=== PATIENT | male | born 1940 | race Caucasian/White ===

== ENCOUNTER 2016-09-11 13:39 | Inpatient (IN) | payer BC ==
--- NOTE | ~2016-09-11 | HP ---
History And Physical [place] [id number] [place]. [address] NAME: ISSAC POZO : 42 STATUS : ADM IN [facility]#: [id number] AGE: 76 ADM/REG DATE : 09/11/16 MR#: [id number] REPORT SERV DATE: 09/11/16 DICTATED BY: TALHA CARDENAS DATE: 09/11/16 REPORT STATUS : Draft TRANSCRIBED BY: ZACHARY DATE: 09/11/16 DATE OF ADMISSION: 09/11/2016 CHIEF COMPLAINT: Severe debility with low blood count. HISTORY OF PRESENT ILLNESS: A 76 years old male with a past medical history of coronary artery disease, status post CABG x9, also a history of recurrent pneumonias and iron deficiency anemia being followed by Dr. Chris Grove, primary care physician, found to have a low blood count that continued to drop to around 8.7. The patient was being followed by his GI physician, Dr. Pedrito Vaughan as an outpatient. The patient states he is up to date for his colonoscopy and had a colonoscopy this year, he believes this month, 09/2016, and the patient was referred to the hospital for worsening anemia with pancytopenia. The patient states he has had approximately 48-pound weight loss over the past two months. He states he has had occasional night sweats. No subjective fever or chills. The patient states he had CT of the chest, abdomen, and pelvis at [facility], several months ago. He states that over the past three to four months, he has had progressive generalized weakness to the point where it is hard for him to get up as well as hard to ambulate, and according to the patient, hard for him to walk due to severe weakness, which is generalized and nonfocal. He denies any shortness of breath. No chest pain. He does state he dealt with gaseous abdominal distention, treating it with simethicone. Also, has chronic severe loose stools. The patient was seen in the ER by Dr. Tejeda, who called the Hospitalist to admit the patient to the hospital. The patient had a negative stool Hemoccult in the ER. REVIEW OF SYSTEMS: As mentioned above as well as intermittent dysuria. Normal appetite. Intermittent night sweats. No subjective fever or chills. No shortness of breath. No chest pain. Generalized weakness. Severe debility. PAST MEDICAL HISTORY: History of reported hepatitis, iron deficiency anemia, diverticulosis, peptic ulcer disease, coronary artery disease/CABG x5. PAST SURGICAL HISTORY: Hernia repair, CABG. FAMILY HISTORY: ESRD, brother. The patient is unsure of other family history. SOCIAL HISTORY: History of 16 to 17 pack years, but quit many years ago. No alcohol or illicit drugs. 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 ALLERGIES: PENICILLIN. HOME MEDICATIONS: Please review home medications per pharmacy MAR; however, the patient does report Prilosec, Protonix, ranitidine simethicone, and aspirin. PHYSICAL EXAMINATION: VITAL SIGNS: Temp of 97.8, blood pressure 113/54, pulse of 74, respiration of 16, saturating 97% on room air. History And Physical [address] [address] NAME: ISSAC POZO : 42 STATUS : ADM IN [facility]#: [id number] AGE: 76 ADM/REG DATE : 09/11/16 MR#: [id number] REPORT SERV DATE: 09/11/16 DICTATED BY: TALHA CARDENAS DATE: 09/11/16 REPORT STATUS : Draft TRANSCRIBED BY: ZACHARY DATE: 09/11/16 GENERAL: The patient is alert and oriented x3. HEENT: Pupils equal, round, and reactive to light. Extraocular muscles are intact. Anicteric sclerae. Pale conjunctiva. No appreciated conjunctival petechiae. No dentition. CARDIOVASCULAR: S1, S2. Regular rate and rhythm. No murmurs, rubs, or gallops. No JVD. RESPIRATORY: Clear to auscultation bilaterally. No wheezes or crackles. No tachypnea. ABDOMEN: Positive bowel sounds. Soft with some mild generalized tenderness to palpation. No rebound. No distention. Mild obesity. EXTREMITIES: Warm with a trace of edema bilaterally. NEURO: Cranial nerves 2 through 12 grossly intact with 4/5 upper and lower extremity strength bilaterally. Gait not assessed. LABORATORY DATA: Sodium 143, potassium 3.9, chloride 108, bicarb of 26, BUN of 16, creatinine 1.42 with glucose of 82, T bilirubin of 1.3 with alkaline phosphatase 57, ALT of 20, AST of 14. White count of 4.1, hemoglobin of 8.7, platelet count 125, MCV of 123.4 with RDW of 15.2, neutrophils 71.4. INR of 1.2. ASSESSMENT AND PLAN: 1. Pancytopenia with symptomatic anemia. 2. Debility. 3. History of coronary artery disease/coronary artery bypass graft. We will check iron studies as well as vitamin studies and we will check SPEP and consult Hematology for assistance for pancytopenia workup. Suspect the patient's debility secondary to his anemia; however, also we will check CT of the chest, abdomen, and pelvis for malignancy screening. Also, we will send for medical records from primary care as well as Dr. Pedrito Vaughan, his GI physician, for last colonoscopy report. JOSLYN/ZACHARY Talha Cardenas M.D. / [id number] CC: Khushi Cramer
--- NOTE | ~2016-09-11 | CN ---
Consultation Report [facility] [address] [place]. [address] NAME: ISSAC STORM : 42 STATUS : ADM [facility] PAT#: [id number] AGE: 76 ADM/REG DATE : 09/11/16 MR#: [id number] REPORT SERV DATE: 09/13/16 DICTATED BY: BRENTON MENJIVAR DATE: 09/12/16 REPORT STATUS : Draft TRANSCRIBED BY: MODL DATE: 09/12/16 CONSULTATION DATE OF CONSULTATION: REASON FOR CONSULTATION: Pancytopenia. I came by and saw the patient and ordered a bone marrow biopsy, returned tonight to complete my consultation. HISTORY OF PRESENT ILLNESS: Briefly, Mr. Storm is a very pleasant 76-year-old with multiple medical problems including a history of an infectious hepatitis many years ago, and he states since that time, he has had intermittent bouts of bile-like diarrhea. He has a history of iron-deficiency anemia, diverticulosis, peptic ulcer disease, coronary artery disease with a CABG x5. He came to the [facility] Emergency room complaining of increased fatigue and feeling weak. He says over the past three to four months he has had progressive generalized weakness to the point he has a hard time ambulating. He has chronic intermittent diarrhea which he states he is able to control some with diet. He has had two recurrent pneumonias and has a history of iron deficiency. He was started on iron after his hemoglobin dropped to 8.7. He has also been followed by Dr. Pedrito Vaughan for GI and states he has had a colonoscopy within the last year. PAST MEDICAL HISTORY: Listed above. REVIEW OF SYSTEMS: A 14-point review of systems was performed and negative except for as per HPI. SOCIAL HISTORY: He served in [employer] and may have had exposure to [employer] [place]. He has had heavy alcohol use in the past and nothing recently. He is currently , the second , he has been for three years. FAMILY HISTORY: Noncontributory. His blood work reveals a white count of 2.8, hemoglobin 7.6, platelet count of 110 with an MCV of 120. Creatinine is 1.33. Non-contrasted CT scans were ordered by the hospitalist which revealed enlarged spleen of approximately 17 cm. A liver with some cyst in it and a mildly enlarged prostate. The patient tells he is unsure if he has ever had his PSA checked. ASSESSMENT AND PLAN: Pancytopenia. He has multiple possibilities. He could have some liver splenic dysfunction causing this. This could be related to myelodysplastic syndrome or an underlying leukemia, lymphoma. I ordered a bone marrow biopsy earlier today. It has not yet been done, so we will reorder this to look for myelodysplastic syndrome versus acute myeloid leukemia. Given his chronic GI issues, this could be secondary to vitamin deficiency. We will check copper and zinc levels. His B12 and folic acid levels were normal. We will follow with you. Consultation Report [place] [id number] [place]. [address] NAME: ISSAC STORM : 42 STATUS : ADM [facility] PAT#: [id number] AGE: 76 ADM/REG DATE : 09/11/16 MR#: [id number] REPORT SERV DATE: 09/13/16 DICTATED BY: BRENTON MENJIVAR DATE: 09/12/16 REPORT STATUS : Draft TRANSCRIBED BY: ZACHARY DATE: 09/12/16 Thank you very much for the consultation. SHRADDHAD/ZACHARY Brenton Menjivar M.D. / [id number] CC: Khushi Cramer
--- NOTE | ~2016-09-11 | DS ---
Discharge Summary [place] [id number] [place]. [address] NAME: ISSAC POZO : 42 STATUS : DIS IN PAT#: [id number] AGE: 76 ADM/REG DATE : 09/11/16 MR#: [id number] REPORT SERV DATE: 09/19/16 DICTATED BY: TALHA CARDENAS DATE: 09/15/16 REPORT STATUS : Draft TRANSCRIBED BY: ZACHARY DATE: 09/15/16 ADMISSION DATE: 09/11/2016 DISCHARGE DATE: 09/15/2016 DIAGNOSES: 1. Pancytopenia. 2. Symptomatic anemia, resolved. 3. Splenomegaly. 4. Copper deficiency. 5. Debility. 6. Chronic kidney disease. 7. Chronic diarrhea. 8. History of coronary artery disease, status post coronary artery bypass grafting. FOLLOWUP: 1. The patient is to follow up with Dr. Kelsea Menjivar, Hematology/Oncology in one week for lab work and path report results from bone marrow biopsy. 2. Follow up with primary care physician in one to two weeks. 3. The patient has been informed to move slowly when changing positions. PROCEDURES: Bone marrow biopsy. DISCHARGE MEDICATIONS: 1. Aspirin 81 mg p.o. daily. 2. Protonix 40 mg p.o. daily. 3. Florastor one capsule p.o. b.i.d. 4. Copper gluconate 2 mg p.o. daily. 5. Multivitamin p.o. daily. 6. Simethicone p.r.n. 7. Albuterol MDI two puffs inhaled q.6 hours p.r.n. IMAGING: CT of the chest, abdomen, and pelvis without contrast showing interval development of a small right and trace left pleural effusion. The previously demonstrated posterior right lower lobe nodules along the pleural margin may be obscured by atelectasis. The third right lower lobe nodule is stable. There is increased splenomegaly, maximum splenic length of 17.7 cm, previously measured at 15.1 cm; a benign liver cyst, unchanged; gallbladder has a normal CT appearance and there is no biliary dilatation. There is a stable 3 cm infrarenal abdominal aortic aneurysm. There is some prostate enlargement and a distal colonic diverticulosis. Otherwise, negative CT of the pelvis. CONSULTANTS: 1. Hematology/Oncology with Dr. Kelsea Menjivar. 2. Dr. Omero Menjivar. 3. Dr. Eduardo. HOSPITAL COURSE: A 76 years old male with a past medical history of coronary artery disease Discharge Summary [address] [address] NAME: ISSAC POZO : 42 STATUS : DIS IN PAT#: [id number] AGE: 76 ADM/REG DATE : 09/11/16 MR#: [id number] REPORT SERV DATE: 09/19/16 DICTATED BY: TALHA CARDENAS DATE: 09/15/16 REPORT STATUS : Draft TRANSCRIBED BY: ZACHARY DATE: 09/15/16 and a history of recurrent pneumonia, who presented with a severe debility with a low blood count. The patient was referred to the emergency department by his GI physician, Dr. Pedrito Vaughan after being found to have a worsening anemia with a hemoglobin close to 8.5. The patient recently had a colonoscopy by his GI physician; however, the patient states he has had progressive generalized weakness over the past 4 months and also has dealt with chronic diarrhea for several months to years. The patient was seen in [facility] ER and admitted to the Hospitalist Service. With review of the patient's home medications, apparently the patient has been taking some anti-acid medication incorrectly and taking Prilosec and Protonix and Zantac. The patient was informed to only take 1 PPI, which also can cause worsening loose stools/diarrhea with malabsorption with overmedication of his PPI. The patient's Prilosec was discontinued and continued on Protonix. Also, the patient was seen by Hematology/Oncology for his pancytopenia with an initial white cell count of 4.1, hemoglobin of 8.7, platelet count of 125. The patient remained afebrile. No signs of infection throughout his hospital course. He had a nondiagnostic SPEP. His B12 and folate were within normal limits. Also, iron studies with elevated iron saturation of 93% and a serum iron of 178 and with IV hydration during his hospital course for some mild hypovolemia, patient's hemoglobin diluted down of 7.6. He did receive 1 unit of packed red blood cells during this hospital course. The patient states prior to his admission, he would have occasional worsening fatigue and dyspnea on exertion and possible lightheadedness with standing, which also resolved during his hospital course. The patient was sent for a bone marrow biopsy by Hematology/Oncology. The preliminary report per the pathologist, Dr. Palacios revealed some erythroid hyperplasia and a possible low-grade myelodysplastic syndrome, however, the final pathology report is still pending. He did not see any signs of acute leukemia and per pathologist, it will take approximately 4 to 5 more days to complete the patient's final study. The patient also was found to have a normal zinc level, however, a low copper level of 66 and the patient was initiated on copper supplementation by Dr. Eduardo, manager manufacturing, who states with having a low copper level can also cause some pancytopenia for some individuals and recommended copper supplementation. Also, it was a question whether or not that the patient was having some malabsorption of minerals due to his history of chronic diarrhea and over excessive PPI usage. The patient's diarrhea did not recur during this hospital course. Stool studies were ordered but not received due to the patient's diarrhea being completely resolved during this hospital stay. Also, there was a suspicion of possible hemolysis of red blood cells due to the patient having some hyperbilirubinemia and poor response to his unit of packed red blood cells from which his hemoglobin only increased from 7.9 to 8.0; therefore, an LDH and haptoglobin was ordered as well as a direct Karrie, for which the direct Karrie was negative with a normal LDH. Haptoglobin was pending at the time of discharge. Also, with the patient having some splenomegaly, the question is that the patient was having red blood cell sequestration from his splenomegaly. Due to the patient remaining hemodynamically stable throughout his entire hospital course and clinically stable, it was recommended by Hematology for the patient to follow up in their clinic in a week for which at that time the patient will have bone marrow report result by that time as well as repeat labs. The patient was informed of following up closely with Hematology for final bone marrow biopsy report and recommendations. Also, the patient was being discharged with a copper supplementation per Hematology recommendations. Discharge Summary [address] [address] NAME: ISSAC POZO : 42 STATUS : DIS IN PAT#: [id number] AGE: 76 ADM/REG DATE : 09/11/16 MR#: [id number] REPORT SERV DATE: 09/19/16 DICTATED BY: TALHA CARDENAS DATE: 09/15/16 REPORT STATUS : Draft TRANSCRIBED BY: MODL DATE: 09/15/16 [facility]/ZACHARY Talha Cardenas M.D. / [id number] CC: Khushi Cramer TERRY B Brooke R. Daniel, M.D. George Samuel, MD
[2016-09-11 12:46] LABS: BASOPHILS 0.5 %; BASOPHILS ABSOLUTE 0.02 10/3/uL (0.0-0.16); EOSINOPHILS 2.9 %; EOSINOPHILS ABSOLUTE 0.12 10/3/uL (0.0-0.53); HEMOGLOBIN 8.7 g/dL (13.6-17.8); IMMATURE GRANULOCYTES 0.2 %; IMMATURE GRANULOCYTES ABSOLUTE 0.01 10/3/uL (0.0-0.11); LYMPHOCYTES 18.9 %; LYMPHOCYTES ABSOLUTE 0.78 10/3/uL (0.67-4.30); MEAN CORPUS HGB CONC 34.4 g/dL (32.0-36.0); MEAN PLATELET VOLUME 10.2 fL (9.2-13.0); MONOCYTES 6.1 %; MONOCYTES ABSOLUTE 0.25 10/3/uL (0.21-1.20); NEUTROPHILS 71.4 %; NEUTROPHILS ABSOLUTE 2.94 10/3/uL (2.02-8.40); RBC DISTRIBUTION WIDTH 15.2 % (12.0-16.0)
[2016-09-11 12:47] LABS: ER CBC TAT 0 Hrs 10 Mins; HEMATOCRIT 25.3 % (40.0-51.0); MANUAL DIFF NO %; MEAN CORPUSCULAR HEMOGLOB 42.4 pg (26.0-34.0); MEAN CORPUSCULAR VOLUME 123.4 fL (80-100); PLATELET COUNT 125 10/3/uL (150-400); RED CELL COUNT 2.05 10/6/uL (4.7-6.1); WHITE BLOOD CELLS 4.1 10/3/uL (4.5-10.5)
[2016-09-11 12:52] LABS: INTERNATIONAL NORMAL RATI 1.2 UNITS (-); PROTIME (NOT ORD) 14.8 SEC (12.0-14.5)
[2016-09-11 13:00] LABS: A/G RATIO 1.2 (0.7-1.9); ALBUMIN 3.6 G/DL (3.5-5.0); ALKALINE PHOSPHATASE 57 U/L (45-117); BUN (BLOOD UREA NITROGEN) 16 MG/DL (6-23); CALCIUM, SERUM 8.8 MG/DL (8.5-10.4); CHLORIDE, SERUM 108 MMOL/L (96-112); CO2 (CARBON DIOXIDE) 26 MMOL/L (24-34); CREATININE 1.42 MG/DL (0.70-1.30); GFR AFRICAN AMERICAN 56 ML/MIN (>=60); GFR NON AFRICAN AMERICAN 48 ML/MIN (>=60); GLOBULIN 3.1 G/DL (2.5-4.1); GLUCOSE, SERUM 80 MG/DL (60-99); POTASSIUM, SERUM 3.9 MMOL/L (3.5-5.3); SGOT(AST) 14 U/L (5-40); SGPT(ALT) 20 U/L (5-65); SODIUM, SERUM 143 MMOL/L (135-148); TOTAL BILIRUBIN 1.3 MG/DL (0-1.2); TOTAL PROTEIN 6.7 G/DL (6.0-8.5)
[2016-09-11 13:13] LABS: MACROCYTES 4+ (>50/OIF) (0-5/OIF); TEARDROP SHAPED RBCS FEW (3-10/OIF)
[2016-09-11 13:14] LABS: POIKILOCYTOSIS 1+ (5-10/OIF) (0-5/OIF)
[2016-09-11 15:47] LABS: TROPONIN I <0.02 NG/ML (<0.05)
[2016-09-11] MEDS ORDERED: PRILOSEC40 MG PO (16:02)
[2016-09-11] MEDS ORDERED: PROTONIX PO (16:02)
[2016-09-11] MEDS ORDERED: ASAB PO (16:02)
[2016-09-11] MEDS ORDERED: ZANTAC150 MG PO (16:05)
[2016-09-11] MEDS ORDERED: SIMETHICONE PO (16:05)
[2016-09-11] MEDS ORDERED: ATEN25 PO (16:06)
[2016-09-11] MEDS ORDERED: ALIGN4 MG PO (16:06)
[2016-09-11 19:36] LABS: CPK 19 U/L (0-200)
[2016-09-11 19:37] LABS: CK-MB < 0.5 NG/ML
[2016-09-11 21:45] LABS: ASCORBIC ACID (UR NOT ORDER) NEG (NEG); BILIRUBIN, URINE NEGATIVE (NEG); KETONE, URINE NEGATIVE (NEG); LEUKOCYTE ESTERASE(NOT OR NEG (NEG); WBC (NOT ORDERED) (RFLEX) 1 (0-5)
[2016-09-12 06:35] LABS: BASOPHILS 0.4 %; BASOPHILS ABSOLUTE 0.01 10/3/uL (0.0-0.16); EOSINOPHILS ABSOLUTE 0.11 10/3/uL (0.0-0.53); HEMOGLOBIN 7.6 g/dL (13.6-17.8); IMMATURE GRANULOCYTES 0.4 %; IMMATURE GRANULOCYTES ABSOLUTE 0.01 10/3/uL (0.0-0.11); LYMPHOCYTES 25.2 %; MANUAL DIFF NO %; MEAN CORPUS HGB CONC 34.5 g/dL (32.0-36.0); MEAN CORPUSCULAR HEMOGLOB 41.8 pg (26.0-34.0); MEAN CORPUSCULAR VOLUME 120.9 fL (80-100); MEAN PLATELET VOLUME 10.9 fL (9.2-13.0); MONOCYTES 5.4 %; MONOCYTES ABSOLUTE 0.15 10/3/uL (0.21-1.20); NEUTROPHILS 64.6 %; PLATELET COUNT 110 10/3/uL (150-400); RBC DISTRIBUTION WIDTH 15.2 % (12.0-16.0); RED CELL COUNT 1.82 10/6/uL (4.7-6.1); WHITE BLOOD CELLS 2.8 10/3/uL (4.5-10.5)
[2016-09-12 06:38] LABS: T PROTEIN (ELECT)(NOT OR 5.8 G/DL (6.0-8.5)
[2016-09-12 07:02] LABS: % IRON SAT 93 % (20-50); A/G RATIO 1.1 (0.7-1.9); ALBUMIN 3.1 G/DL (3.5-5.0); ALKALINE PHOSPHATASE 51 U/L (45-117); BUN (BLOOD UREA NITROGEN) 16 MG/DL (6-23); CALCIUM, SERUM 8.5 MG/DL (8.5-10.4); CHLORIDE, SERUM 110 MMOL/L (96-112); CO2 (CARBON DIOXIDE) 24 MMOL/L (24-34); CREATININE 1.33 MG/DL (0.70-1.30); FERRITIN 316 NG/ML (26-388); GFR AFRICAN AMERICAN 61 ML/MIN (>=60); GFR NON AFRICAN AMERICAN 52 ML/MIN (>=60); GLOBULIN 2.7 G/DL (2.5-4.1); GLUCOSE, SERUM 88 MG/DL (60-99); IRON BINDING CAPACITY 191 MCG/DL (250-450); IRON, SERUM 178 MCG/DL (35-150); POTASSIUM, SERUM 3.8 MMOL/L (3.5-5.3); RETICULOCYTE COUNT 2.4 % (0.5-2.9); RETICULOCYTE COUNT ABSOLUTE 43.9 10/3/uL (20.2-119.8); SGOT(AST) 9 U/L (5-40); SGPT(ALT) 18 U/L (5-65); SODIUM, SERUM 145 MMOL/L (135-148); TOTAL PROTEIN 5.8 G/DL (6.0-8.5)
[2016-09-12 07:03] LABS: FOLATE 8.8 NG/ML (>5.2); TOTAL BILIRUBIN 1.8 MG/DL (0-1.2)
[2016-09-12 07:19] LABS: PLATELET ESTIMATE ADQ (ADEQUATE); POIKILOCYTOSIS 1+ (5-10/OIF) (0-5/OIF); TEARDROP SHAPED RBCS OCC (0-2/OIF)
[2016-09-12 07:20] LABS: MACROCYTES 4+ (>50/OIF) (0-5/OIF)
[2016-09-12 10:55] LABS: HEPATITIS B SURFACE ANTIGEN NON-REACTIVE (NON-REACT)
[2016-09-12 11:19] LABS: HEPATITIS C ANTIBODY NON-REACTIVE (NON-REACT)
[2016-09-12 11:20] LABS: HEPATITIS B CORE AB IGM NON-REACTIVE (NON-REAC)
[2016-09-12 11:24] LABS: HEP A ANTIBODY IGM NON-REACTIVE (NON-REACT)
[2016-09-12 11:39] LABS: ALB RELATIVE % 62.9 % (60.0-89.0); ALBUMIN (ELECTRO) 3.65 GM/DL (3.2-5.5); ALPHA 1 (ELECTRO) 0.19 GM/DL (0.1-0.4); ALPHA 1 RELAT % (NOT ORD) 3.2 % (1.0-4.0); ALPHA 2 (ELECTRO) 0.54 GM/DL (0.5-1.10); ALPHA 2 RELAT % 9.3 % (4.5-26.0); BETA GLOBULIN (SPE) 0.46 GM/DL (0.60-1.30); GAMMA GLOBULIN (SPE) 0.96 G/DL (0.70-1.60); GAMMA RELAT % 16.6 % (6.0-22.0)
[2016-09-14 07:05] LABS: BASOPHILS 0.3 %; BASOPHILS ABSOLUTE 0.01 10/3/uL (0.0-0.16); EOSINOPHILS 3.5 %; EOSINOPHILS ABSOLUTE 0.11 10/3/uL (0.0-0.53); HEMATOCRIT 23.7 % (40.0-51.0); HEMOGLOBIN 7.9 g/dL (13.6-17.8); LYMPHOCYTES 27.7 %; LYMPHOCYTES ABSOLUTE 0.88 10/3/uL (0.67-4.30); MEAN CORPUS HGB CONC 33.3 g/dL (32.0-36.0); MEAN CORPUSCULAR HEMOGLOB 41.1 pg (26.0-34.0); MEAN CORPUSCULAR VOLUME 123.4 fL (80-100); MEAN PLATELET VOLUME 10.9 fL (9.2-13.0); MONOCYTES 7.2 %; MONOCYTES ABSOLUTE 0.23 10/3/uL (0.21-1.20); NEUTROPHILS 61.3 %; NEUTROPHILS ABSOLUTE 1.95 10/3/uL (2.02-8.40); PLATELET COUNT 107 10/3/uL (150-400); RBC DISTRIBUTION WIDTH 15.4 % (12.0-16.0); RED CELL COUNT 1.92 10/6/uL (4.7-6.1); WHITE BLOOD CELLS 3.2 10/3/uL (4.5-10.5)
[2016-09-14 07:08] LABS: MANUAL DIFF NO %
[2016-09-14 07:19] LABS: A/G RATIO 1.2 (0.7-1.9); ALBUMIN 3.5 G/DL (3.5-5.0); ALKALINE PHOSPHATASE 54 U/L (45-117); BUN (BLOOD UREA NITROGEN) 18 MG/DL (6-23); CALCIUM, SERUM 8.6 MG/DL (8.5-10.4); CHLORIDE, SERUM 107 MMOL/L (96-112); CO2 (CARBON DIOXIDE) 25 MMOL/L (24-34); CREATININE 1.34 MG/DL (0.70-1.30); GFR AFRICAN AMERICAN 60 ML/MIN (>=60); GFR NON AFRICAN AMERICAN 52 ML/MIN (>=60); GLOBULIN 2.9 G/DL (2.5-4.1); GLUCOSE, SERUM 95 MG/DL (60-99); SGOT(AST) 13 U/L (5-40); SGPT(ALT) 17 U/L (5-65); SODIUM, SERUM 142 MMOL/L (135-148); TOTAL BILIRUBIN 2.2 MG/DL (0-1.2); TOTAL PROTEIN 6.4 G/DL (6.0-8.5)
[2016-09-14 07:50] LABS: MACROCYTES 4+ (>50/OIF) (0-5/OIF); PLATELET ESTIMATE DEC (ADEQUATE)
[2016-09-14 20:14] LABS: COPPER 66 ug/dL (70-140); ZINC 69 ug/dL (60-120)
[2016-09-15 06:51] LABS: BASOPHILS 0.4 %; BASOPHILS ABSOLUTE 0.01 10/3/uL (0.0-0.16); EOSINOPHILS 4.9 %; EOSINOPHILS ABSOLUTE 0.11 10/3/uL (0.0-0.53); HEMATOCRIT 23.3 % (40.0-51.0); LYMPHOCYTES 21.5 %; LYMPHOCYTES ABSOLUTE 0.48 10/3/uL (0.67-4.30); MEAN CORPUS HGB CONC 34.3 g/dL (32.0-36.0); MEAN CORPUSCULAR HEMOGLOB 39.6 pg (26.0-34.0); MEAN PLATELET VOLUME 11.1 fL (9.2-13.0); MONOCYTES 9.9 %; MONOCYTES ABSOLUTE 0.22 10/3/uL (0.21-1.20); NEUTROPHILS 63.3 %; NEUTROPHILS ABSOLUTE 1.41 10/3/uL (2.02-8.40); PLATELET COUNT 100 10/3/uL (150-400); RED CELL COUNT 2.02 10/6/uL (4.7-6.1)
[2016-09-15 06:54] LABS: MEAN CORPUSCULAR VOLUME 115.3 fL (80-100); WHITE BLOOD CELLS 2.2 10/3/uL (4.5-10.5)
[2016-09-15 06:55] LABS: MANUAL DIFF NO %
[2016-09-15 07:35] LABS: HYPOCHROMIA 1+ (3-10/OIF) (0-2/OIF); MACROCYTES 1+ (5-10/OIF) (0-5/OIF); PLATELET ESTIMATE DEC (ADEQUATE); POLYCHROMASIA 1+ (2-5/OIF) (0-1/OIF); TEARDROP SHAPED RBCS FEW (3-10/OIF)
[2016-09-15 10:35] LABS: A/G RATIO 1.1 (0.7-1.9); ALBUMIN 3.3 G/DL (3.5-5.0); ALKALINE PHOSPHATASE 52 U/L (45-117); BUN (BLOOD UREA NITROGEN) 19 MG/DL (6-23); CALCIUM, SERUM 8.6 MG/DL (8.5-10.4); CHLORIDE, SERUM 109 MMOL/L (96-112); CO2 (CARBON DIOXIDE) 25 MMOL/L (24-34); CREATININE 1.29 MG/DL (0.70-1.30); GFR AFRICAN AMERICAN 63 ML/MIN (>=60); GFR NON AFRICAN AMERICAN 54 ML/MIN (>=60); GLUCOSE, SERUM 102 MG/DL (60-99); POTASSIUM, SERUM 3.9 MMOL/L (3.5-5.3); SGOT(AST) 13 U/L (5-40); SGPT(ALT) 18 U/L (5-65); SODIUM, SERUM 146 MMOL/L (135-148); TOTAL PROTEIN 6.3 G/DL (6.0-8.5)
[2016-09-15 10:36] LABS: TOTAL BILIRUBIN 1.4 MG/DL (0-1.2)
[2016-09-15] MEDS ORDERED: FLORASTOR250 MG PO (14:02)
[2016-09-15] MEDS ORDERED: PROAIR HFA INH (14:03)
[2016-09-15] MEDS ORDERED: COPPER GLUCONATE PO (14:06)
[2016-09-15] MEDS ORDERED: MULTIVITAMI1 PO (14:07)
== END 2016-09-15 16:02 | disposition home or self-care (01) | DRG 810 ==
LOC: ER 13:39 → 5SO 15:07
PROVIDERS: Emergency Medicine; Internal Medicine; Internal Medicine Hematology & Oncology
PROC: 07DR3ZX Extraction of Iliac Bone Marrow, Percutaneous Approach, Diagnostic (ICD-10-PCS; 2016-09-13)
PROC: 30253N1 (ICD-10-PCS; principal; 2016-09-14)
DX: D61.818 Other pancytopenia (principal); E61.0 Copper deficiency; R16.1 Splenomegaly, not elsewhere classified; D50.9 Iron deficiency anemia, unspecified; I25.10 Atherosclerotic heart disease of native coronary artery without angina pectoris; R53.81 Other malaise; R63.4 Abnormal weight loss; K52.89 Other specified noninfective gastroenteritis and colitis; N18.9 Chronic kidney disease, unspecified; Z95.1 Presence of aortocoronary bypass graft; Z88.0 Allergy status to penicillin; Z79.899 Other long term (current) drug therapy; Z79.82 Long term (current) use of aspirin; Z68.32 Body mass index [BMI] 32.0-32.9, adult; Z87.11 Personal history of peptic ulcer disease; Z87.891 Personal history of nicotine dependence; R05 Cough
CPT/HCPCS: 36415; 71010; 71020; 71250; 74176; 80053; 80074; 81001; 82525; 82550; 82553; 82607; 82728; 82746; 83010; 83540; 83550; 83615; 84155; 84165; 84484; 84630; 85025; 85045; 85610; 85730; 86850; 86880; 86900; 86901; 86920; 88305; 88311; 88313; 88341; 88342; 88360; 93005; 94640; 97161-GP; 99285; A9270-GY; G0378; G0463; P9016

== ENCOUNTER 2016-09-20 16:04 | Inpatient (IN) | payer BC ==
--- NOTE | ~2016-09-20 | DS ---
Discharge Summary [facility] [address] [facility] [place]. [address] NAME: ISSAC POZO : 42 STATUS : DIS IN PAT#: [id number] AGE: 76 ADM/REG DATE : 09/20/16 MR#: [id number] REPORT SERV DATE: 09/26/16 DICTATED BY: ROCKY ALVAREZ DATE: 09/25/16 REPORT STATUS : Draft TRANSCRIBED BY: MODL DATE: 09/25/16 ADMISSION DATE: 09/20/2016 DISCHARGE DATE: 09/25/2016 CONDITION ON DISCHARGE: Stable. DISPOSITION: Discharged to home. ADVICE ON DISCHARGE: To follow up with his oncologist, for his myelodysplastic syndrome and copper deficiency according to the patient. DIAGNOSES: 1. Bibasilar lower lobe pneumonia - resolved. 2. Diagnosis chronic obstructive pulmonary disease exacerbation - resolved. 3. Severe anemia secondary to myelodysplastic syndrome - improved after blood transfusion and his hemoglobin and hematocrit are stable now at 10 and 30 approximately. 4. History of coronary artery disease and status post coronary artery bypass grafting which is stable. 5. Acute kidney injury, improved. 6. Chronic kidney disease stage II, stable. 7. 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 BRIEF HOSPITAL COURSE: Please refer to the interim discharge summary dictated by Dr. Hernadez on 09/24/2016. The day I saw this patient on 09/25/2016, the patient requests discharge and states that he feels really well. The patient states that he has already received blood transfusion and he would like to go home, and hence, I have only made arrangements for discharge on this patient. For brief hospital course, please refer to the interim discharge summary. Essentially, this patient was admitted with bibasilar bronchopneumonia/acute bronchitis, and acute exacerbation of COPD. He was started on IV antibiotics and then transitioned to p.o. Levaquin, and then after that the patient was also given breathing treatments, and with supportive and symptomatic care, he recovered. The patient continues to have pancytopenia secondary to myelodysplastic syndrome, and as his hemoglobin and hematocrit were extremely low upon admission, the patient was given blood transfusion. Now, his hemoglobin and hematocrit are back up to normal. The following are his most recent lab values: His haptoglobin came back normal at 63. BNP at 144.8, which was slightly elevated. His lactate level came back at 3.1 on 09/21/2016, but the patient's condition gradually improved; however, after this. The patient also had a serum drug screen when he came in, and this was essentially normal. His creatinine was as high as 1.96, but this also came down nicely, and the most recent one on 09/24/2016, showed a creatinine of 1.35, which is pretty much his baseline. The patient's most recent CBC shows that his WBC count is 4.1, hemoglobin 9.1, hematocrit is 26.9, and platelet count is 106, and this is after transfusion. His blood cultures have come back with no growth at four days. Discharge Summary [address] [address] NAME: ISSAC POZO : 42 STATUS : DIS IN PAT#: [id number] AGE: 76 ADM/REG DATE : 09/20/16 MR#: [id number] REPORT SERV DATE: 09/26/16 DICTATED BY: ROCKY ALVAREZ DATE: 09/25/16 REPORT STATUS : Draft TRANSCRIBED BY: ZACHARY DATE: 09/25/16 Lower respiratory tract culture shows growth of normal respiratory simone. The patient also had a chest CT without contrast that shows bibasilar lower lobe consolidations/bronchopneumonia for which the patient has already been treated with antibiotics. His strep pneumococcus antigen came back negative. His Legionella also came back negative. Hence, he is being sent home in stable condition after he improved. Medications that he is being sent home on upon discharge include resumption of his entire home medication list. This will include ProAir HFA 2 puffs p.r.n. for shortness of breath, multivitamin tablet 1 every day, Protonix 40 mg once a day, aspirin 81 mg once a day, Lasix 20 mg once a day, Zantac 150 mg p.o. b.i.d., folic acid 1 mg p.o. daily, Mucinex 600 mg p.o. t.i.d., Flomax 0.4 mg once a day, Spiriva 1 capsule inhalation daily, Levaquin 750 mg p.o. daily until he finishes the course, and Florastor 250 mg p.o. b.i.d., prednisone which is going to be taking as a tapering dose, for now he will be on 40 mg a day which is going to be tapered per prescription. Hence, he is being sent home in stable condition, and I have spent about 40 minutes in coordinating discharge care of this patient including [id number] encounter and summarizing this discharge. SHERWIN/ZACHARY Rocky Alvarez M.D. / [id number] CC: Khushi Cunha
--- NOTE | ~2016-09-20 | IDS ---
Interim Discharge Summary [facility] [address] [place]. [address] NAME: ISSAC OPZO : 42 STATUS : ADM IN [facility]#: [id number] AGE: 76 ADM/REG DATE : 09/20/16 MR#: [id number] REPORT SERV DATE: 09/25/16 DICTATED BY: CHEYANNE NAPOLES DATE: 09/24/16 REPORT STATUS : Draft TRANSCRIBED BY: ZACHARY DATE: 09/24/16 ADMISSION DATE: 09/20/2016 DISCHARGE DATE: DISCHARGE DATE: Pending. CURRENT DIAGNOSES: 1. Bibasilar lower lobe pneumonia. 2. Chronic obstructive pulmonary disease exacerbation. 3. Pancytopenia. 4. Copper deficiency. 5. Myelodysplastic syndrome. 6. History of coronary artery disease, status post history of remote CABG. 7. Acute kidney injury on chronic kidney disease, improving. 8. History of splenomegaly. CURRENT CONDITION: Stable. HISTORY OF PRESENT ILLNESS: For detailed HPI please make reference to Dr. Diamond Ramsay's dictation on 09/21/2016. In brief, this is a 76-year-old male who has had recent multiple admission, who presented to the hospital with worsening shortness of breath, cough, and wheezing. In the ER, he was noted to have a chest x-ray concerning for consolidation. A CT of the chest was done that shows evidence of bronchopneumonia. The patient was subsequently admitted to the Hospitalist Service. HOSPITAL COURSE: 1. Bibasilar lower lobe bronchopneumonia on presentation. Based on CT findings of consultation, the patient was started on vancomycin and cefepime. The patient was initially neutropenic on presentation with antibiotics treatment. The patient's WBC has remained stable. The patient remained afebrile. The patient's sputum culture came back that shows normal simone. The patient's oxygen requirement has also returned back to baseline. The patient was transitioned from broad-spectrum IV antibiotics to p.o. levofloxacin. The patient is currently tolerating p.o. levofloxacin without any significant hypoxia. 2. Pancytopenia, likely due to myelodysplastic syndrome. The patient was initially diagnosed with myelodysplastic syndrome. The patient's oncologist was consulted during the course of this admission. The patient's blood count, white blood cell, and platelet has remained stable; however, the patient's hemoglobin trended down to 7.9. I spoke with the patient's primary oncologist who recommended the patient to be transfused one unit of blood. The patient still continues to complain of mild fatigue and shortness of breath on exertion. I believe unit of blood transfusion, the patient's symptoms may improve. We will check Epogen level today. The patient will be encouraged to follow up with Oncology as an outpatient at the time of discharge. 3. Acute kidney injury on chronic kidney disease. The patient's creatinine on presentation was 1.96. The patient's creatinine trended down to 1.5 with gentle IV Interim Discharge Summary [address] [address] NAME: ISSAC POZO : 42 STATUS : ADM IN [facility]#: [id number] AGE: 76 ADM/REG DATE : 09/20/16 MR#: [id number] REPORT SERV DATE: 09/25/16 DICTATED BY: CHEYANNE NAPOLES DATE: 09/24/16 REPORT STATUS : Draft TRANSCRIBED BY: ZACHARY DATE: 09/24/16 fluids. The patient's creatinine has remained stable at 1.35 today. 4. History of coronary artery disease, status post remote history of CABG. No evidence of chest pain throughout the course of this admission. The patient has remained stable. The patient's home dose of cardiac medications as been continued throughout the course of this admission. 5. COPD exacerbation. The patient was started on IV prednisolone, IV methylprednisolone, and antibiotics as stated above. The patient was then transitioned from IV prednisolone to p.o. prednisolone at this time tolerated very well. DISPOSITION: The patient's symptoms improved and deemed stable enough. May be discharged tomorrow. ANN-MARIEO/ZACHARY Cheyanne Napoles MD / [id number]
--- NOTE | ~2016-09-20 | HP ---
History And Physical [place] [id number] [facility] [place]. [address] NAME: ISSAC POZO : 44 STATUS : ADM IN [facility]#: [id number] AGE: 76 ADM/REG DATE : 09/20/16 MR#: [id number] REPORT SERV DATE: 09/21/16 DICTATED BY: DIAMOND KU DATE: 09/20/16 REPORT STATUS : Draft TRANSCRIBED BY: MODRubio DATE: 09/20/16 DATE OF ADMISSION: 09/20/2016 CHIEF COMPLAINT: Increasing shortness of breath, cough, as well as wheezing since discharge. 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 It is very important to note that the patient says that since discharged 1 day after, he started to have wheezing, increasing shortness of breath, and cough. He says that he has had cough productive of whitish sputum for on and off months, been diagnosed in the past he says with pneumonia and treated as an outpatient. However, he says that his shortness of breath get progressively worse after discharge with wheezing as well as intractable cough with, according to the patient, yellowish sputum production. He went yesterday to [facility] in [place] and he has been evaluated. He requested to be put on oxygen according to the patient and family, but they did not put the patient on oxygen. He did not have any diarrhea since prior hospitalization, but he says that he has a history of chronic intermittent diarrhea. He did not have any chest pain, no palpitations, no presyncopal or syncopal episodes. He has not had any nausea or vomiting. No other complaints. After initial evaluation in the emergency room, the Hospitalist Service has been asked for admission, further evaluation, and treatment. PAST MEDICAL HISTORY: Significant for: 1. Coronary artery disease, status post CABG x5. 2. History of chronic kidney disease. 3. Recent diagnosis of myelodysplastic syndrome with pancytopenia, splenomegaly. 4. Also history of chronic intermittent diarrhea and peptic ulcer disease. PAST SURGICAL HISTORY: Include CABG x5 and hernia repair. FAMILY HISTORY: Kidney disease. ALLERGIES: HE IS ALLERGIC TO PENICILLIN. SOCIAL HISTORY: He has not been a smoker. He quit actually about 15 years ago, but he has a prior history of smoking for 40 years. No alcohol, but he used to do drink heavily in the past. No IV drugs. He served in [place] and he might been exposed to Agent [place] in the past. MEDICATIONS: At home include: 1. Albuterol. 2. Aspirin. 3. Tessalon. 4. Lasix. History And Physical [address] [address] NAME: ISSAC POZO : 42 STATUS : ADM IN [facility]#: [id number] AGE: 76 ADM/REG DATE : 09/20/16 MR#: [id number] REPORT SERV DATE: 09/21/16 DICTATED BY: DIAMOND KU DATE: 09/20/16 REPORT STATUS : Draft TRANSCRIBED BY: MODRubio DATE: 09/20/16 5. Multivitamin. 6. Protonix. 7. Zantac. 8. Copper gluconate. 9. Simethicone p.r.n. REVIEW OF SYSTEMS: 14-point review of systems has been obtained and pertinent positive has been listed into the history of present illness. Otherwise, negative except those underlying above currently. PHYSICAL EXAMINATION: VITAL SIGNS: He is afebrile, blood pressure 131/62, heart rate 97, respiratory rate 20, saturating 90% to 94% on room air. GENERAL: He is a very pleasant, well-developed, well-nourished gentleman, in no acute distress. He is alert and oriented x3. Nonfocal. He follows all his commands appropriately. HEENT: Showed pupils equal, round, reactive to light. Extraocular movements intact. No JVD. No lymphadenopathy. No thyromegaly appreciated. RESPIRATORY: Chest eval shows bilateral air entry. Bilateral wheezes. Few crackles on the right base and scattered rhonchi. CARDIOVASCULAR: Regular rate and rhythm. S1, S2 positive. No S3, no S4. No murmurs, rubs, or gallops appreciated. ABDOMEN: Soft, positive bowel sounds. Nontender. No guarding. No rebound. EXTREMITIES: No clubbing, cyanosis, or edema. NEUROLOGIC: He is alert and oriented x3. He follows all his commands appropriately. LABORATORY DATA: Labs from today include sodium 143, potassium 3.6, chloride 108, CO2 is 28, BUN 19, creatinine 1.96, glucose is 99. His troponin is less than 0.02. His BNP 131.3. His white count is 3.8, hemoglobin 8.5, hematocrit 24.8, and platelets 104. His INR is 1.3. His blood cultures are pending. There is a chest x-ray, portable, performed in the emergency room, which shows an increased density on the right lower base questionable early infiltrate versus atelectasis and there are emphysematous changes as well. ASSESSMENT: This is a very pleasant 76-year-old gentleman with increasing shortness of breath, cough, wheezing, and sputum production with: 1. Right lower lobe infiltrate. 2. Likely chronic obstructive pulmonary disease/emphysema exacerbation. 3. Recent diagnosis of myelodysplastic syndrome with pancytopenia. 4. Acute on chronic kidney disease. 5. History of coronary artery disease, status post coronary artery bypass graft. 6. History of peptic ulcer disease. PLAN: 1. The patient is going to be admitted to monitored bed. We are going to place him on oxygen. Due to recent hospitalization, I am going to start him on cefepime and vancomycin, check sputum culture, and check a procalcitonin level. I am going to repeat a CT of the chest without contrast in the morning. We are going to place him on History And Physical [address] [address] NAME: ISSAC POZO : 44 STATUS : ADM IN [facility]#: [id number] AGE: 76 ADM/REG DATE : 09/20/16 MR#: [id number] REPORT SERV DATE: 09/21/16 DICTATED BY: DIAMOND KU DATE: 09/20/16 REPORT STATUS : Draft TRANSCRIBED BY: MODL DATE: 09/20/16 steroids, nebulizer treatment, Mucinex as well, also Dulera, and consult Pulmonology for further recommendation. We will check on 2D echo as well. 2. Recent diagnosis of myelodysplastic syndrome. We are going to consult Dr. Omero Menjivar per the patient's family request. 3. Acute on chronic kidney disease. We are going to hold the Lasix for today. We are going to provide gentle hydration, strict I's and O's, strict daily weights. Check spot urine for sodium, creatinine, osmolality, and check a renal ultrasound as well, UA, and urine cultures as well. 4. History of coronary artery disease. We are going to continue his home medications. 5. We are going to provide reasonable pain and nausea control as well as GI and DVT prophylaxes that has been discussed extensively with the patient as well as the patient's family. All the questions have been answered in full. Further workup and recommendation pending above. It is worthwhile to note that the patient is going to be followed up by Dr. Hernadez. CF/MODL Diamond Ku M.D. / [id number] CC: Smith Olivares M.D.
[~2016-09-20 16:04] MED LIST: ALIGN4 MG PO; ASAB PO; ATEN25 PO; COPPER GLUCONATE PO; FLORASTOR250 MG PO; MULTIVITAMI1 PO; PRILOSEC40 MG PO; PROAIR HFA INH; PROTONIX PO; SIMETHICONE PO; ZANTAC150 MG PO
[2016-09-20 17:25] LABS: BASOPHILS 0.3 %; BASOPHILS ABSOLUTE 0.01 10/3/uL (0.0-0.16); EOSINOPHILS 2.3 %; EOSINOPHILS ABSOLUTE 0.09 10/3/uL (0.0-0.53); HEMATOCRIT 24.8 % (40.0-51.0); HEMOGLOBIN 8.5 g/dL (13.6-17.8); IMMATURE GRANULOCYTES 0.3 %; IMMATURE GRANULOCYTES ABSOLUTE 0.01 10/3/uL (0.0-0.11); LYMPHOCYTES 15.7 %; MEAN CORPUS HGB CONC 34.3 g/dL (32.0-36.0); MEAN CORPUSCULAR HEMOGLOB 40.1 pg (26.0-34.0); MEAN PLATELET VOLUME 11.7 fL (9.2-13.0); MONOCYTES 4.7 %; MONOCYTES ABSOLUTE 0.18 10/3/uL (0.21-1.20); NEUTROPHILS 76.7 %; NEUTROPHILS ABSOLUTE 2.94 10/3/uL (2.02-8.40); PLATELET COUNT 104 10/3/uL (150-400); RED CELL COUNT 2.12 10/6/uL (4.7-6.1)
[2016-09-20 17:26] LABS: MANUAL DIFF NO %; WHITE BLOOD CELLS 3.8 10/3/uL (4.5-10.5)
[2016-09-20 17:33] LABS: INTERNATIONAL NORMAL RATI 1.3 UNITS (-); PROTIME (NOT ORD) 15.6 SEC (12.0-14.5)
[2016-09-20 17:34] LABS: PARTIAL THROMBO TIME 42.4 SEC (22.5-37.2)
[2016-09-20 17:41] LABS: BE (BASE EXCESS) -0.1 MEQ/L (0 +/- 2.5); HCO3 (ACTUAL BICARBONATE) 22.6 MEQ/L (23-27); HEMOBLOGIN CONTENT 8.6 G/DL (14-18); INSTRUMENT SERIAL # 8087; METHEMOGLOBIN 0.3 % (0-3); O2 CONTENT 11.3 VOL% (18-24); PCO2 (CO2 TENSION) 30 MMHG (35-45); PO2 (O2 TENSION) 74 MMHG (79-93); SAMPLE Arterial
[2016-09-20 17:42] LABS: A/G RATIO 0.9 (0.7-1.9); ALBUMIN 3.2 G/DL (3.5-5.0); ALKALINE PHOSPHATASE 60 U/L (45-117); BUN (BLOOD UREA NITROGEN) 19 MG/DL (6-23); CHLORIDE, SERUM 108 MMOL/L (96-112); CO2 (CARBON DIOXIDE) 28 MMOL/L (24-34); GFR AFRICAN AMERICAN 38 ML/MIN (>=60); GFR NON AFRICAN AMERICAN 33 ML/MIN (>=60); GLOBULIN 3.4 G/DL (2.5-4.1); GLUCOSE, SERUM 99 MG/DL (60-99); POTASSIUM, SERUM 3.6 MMOL/L (3.5-5.3); SGOT(AST) 17 U/L (5-40); SGPT(ALT) 26 U/L (5-65); SODIUM, SERUM 143 MMOL/L (135-148); TOTAL PROTEIN 6.6 G/DL (6.0-8.5); TROPONIN I <0.02 NG/ML (<0.05)
[2016-09-20 17:43] LABS: CREATININE 1.96 MG/DL (0.70-1.30); ELLIPTOCYTES 1+ (3-10/OIF) (0-2/OIF); MICROCYTES 1+ (5-10/OIF) (0-5/OIF); OVALOCYTES 1+ (3-10/OIF) (0-2/OIF); PLATELET ESTIMATE SLT DEC (ADEQUATE); POIKILOCYTOSIS 1+ (5-10/OIF) (0-5/OIF); TEARDROP SHAPED RBCS FEW (3-10/OIF)
[2016-09-20] MEDS ORDERED: PROAIR HFA INH (19:00)
[2016-09-20] MEDS ORDERED: MULTIVIT/MIN PO (19:01)
[2016-09-20] MEDS ORDERED: COPPER GLUCONATE 2 MG PO (19:01)
[2016-09-20] MEDS ORDERED: ZANTAC150 MG PO (19:02)
[2016-09-20] MEDS ORDERED: SIMETHICONE 180 MG PO (19:02)
[2016-09-20] MEDS ORDERED: PROTONIX PO (19:02)
[2016-09-20] MEDS ORDERED: ASAB PO (19:03)
[2016-09-20] MEDS ORDERED: TESS PO (19:04)
[2016-09-20] MEDS ORDERED: L20 PO (19:04)
[2016-09-20] MEDS ORDERED: ZANTAC 150 PO (19:05)
[2016-09-20 23:33] LABS: RETICULOCYTE COUNT 1.6 % (0.5-2.9); RETICULOCYTE COUNT ABSOLUTE 32.8 10/3/uL (20.2-119.8)
[2016-09-20 23:41] LABS: FREE T4 1.11 NG/DL (0.76-1.46)
[2016-09-20 23:46] LABS: ACETAMINOPHEN LEVEL (TYLENOL) < 2.0 MCG/ML (10.0-20.0); SALICYLATE < 1.7 MG/DL (-)
[2016-09-20 23:47] LABS: ALCOHOL < 10 MG/DL (0)
[2016-09-21 01:42] LABS: PROCALCITONIN 0.09 ng/mL (<0.5)
[2016-09-21 05:12] LABS: BASOPHILS 0.4 %; BASOPHILS ABSOLUTE 0.01 10/3/uL (0.0-0.16); EOSINOPHILS 0.4 %; EOSINOPHILS ABSOLUTE 0.01 10/3/uL (0.0-0.53); HEMATOCRIT 23.8 % (40.0-51.0); LYMPHOCYTES 8.5 %; LYMPHOCYTES ABSOLUTE 0.22 10/3/uL (0.67-4.30); MEAN CORPUS HGB CONC 33.6 g/dL (32.0-36.0); MEAN CORPUSCULAR HEMOGLOB 39.2 pg (26.0-34.0); MEAN CORPUSCULAR VOLUME 116.7 fL (80-100); MEAN PLATELET VOLUME 12.1 fL (9.2-13.0); MONOCYTES 1.5 %; MONOCYTES ABSOLUTE 0.04 10/3/uL (0.21-1.20); NEUTROPHILS 89.2 %; NEUTROPHILS ABSOLUTE 2.31 10/3/uL (2.02-8.40); PLATELET COUNT 92 10/3/uL (150-400); RBC DISTRIBUTION WIDTH 20.3 % (12.0-16.0); RED CELL COUNT 2.04 10/6/uL (4.7-6.1); WHITE BLOOD CELLS 2.6 10/3/uL (4.5-10.5)
[2016-09-21 05:13] LABS: MANUAL DIFF NO %
[2016-09-21 05:25] LABS: A/G RATIO 0.9 (0.7-1.9); ALBUMIN 3.2 G/DL (3.5-5.0); ALKALINE PHOSPHATASE 60 U/L (45-117); BUN (BLOOD UREA NITROGEN) 20 MG/DL (6-23); CALCIUM, SERUM 8.1 MG/DL (8.5-10.4); CHLORIDE, SERUM 109 MMOL/L (96-112); CO2 (CARBON DIOXIDE) 26 MMOL/L (24-34); CREATININE 1.56 MG/DL (0.70-1.30); GFR AFRICAN AMERICAN 50 ML/MIN (>=60); GFR NON AFRICAN AMERICAN 43 ML/MIN (>=60); GLOBULIN 3.5 G/DL (2.5-4.1); POTASSIUM, SERUM 3.8 MMOL/L (3.5-5.3); SGOT(AST) 16 U/L (5-40); SGPT(ALT) 22 U/L (5-65); SODIUM, SERUM 144 MMOL/L (135-148); TOTAL BILIRUBIN 0.9 MG/DL (0-1.2); TOTAL PROTEIN 6.7 G/DL (6.0-8.5)
[2016-09-21 05:28] LABS: GLUCOSE, SERUM 147 MG/DL (60-99)
[2016-09-21 06:01] LABS: ANISOCYTOSIS 1+ (5-10/OIF) (0-5/OIF); OVALOCYTES 1+ (3-10/OIF) (0-2/OIF); PLATELET ESTIMATE DEC (ADEQUATE); TEARDROP SHAPED RBCS FEW (3-10/OIF)
[2016-09-21 06:02] LABS: POIKILOCYTOSIS 1+ (5-10/OIF) (0-5/OIF)
[2016-09-21 08:23] LABS: GLYCOHEMOGLOBIN (HbA1c) 4.6 % (4.7-6.1)
[2016-09-21 13:53] LABS: ASCORBIC ACID (UR NOT ORDER) NEG (NEG); BILIRUBIN, URINE NEGATIVE (NEG); KETONE, URINE NEGATIVE (NEG); LEUKOCYTE ESTERASE(NOT OR NEG (NEG); WBC (NOT ORDERED) (RFLEX) 1 (0-5)
[2016-09-21 20:07] LABS: BASOPHILS 0 %; EOSINOPHILS 0 %; HEMATOCRIT 23.8 % (40.0-51.0); LYMPHOCYTES 6.6 %; LYMPHOCYTES ABSOLUTE 0.26 10/3/uL (0.67-4.30); MEAN CORPUS HGB CONC 33.6 g/dL (32.0-36.0); MEAN CORPUSCULAR HEMOGLOB 40.2 pg (26.0-34.0); MEAN CORPUSCULAR VOLUME 119.6 fL (80-100); MEAN PLATELET VOLUME 12.1 fL (9.2-13.0); MONOCYTES 2.5 %; NEUTROPHILS 90.9 %; NEUTROPHILS ABSOLUTE 3.57 10/3/uL (2.02-8.40); PLATELET COUNT 96 10/3/uL (150-400); RBC DISTRIBUTION WIDTH 20.5 % (12.0-16.0); RED CELL COUNT 1.99 10/6/uL (4.7-6.1)
[2016-09-21 20:10] LABS: MANUAL DIFF NO %; WHITE BLOOD CELLS 3.9 10/3/uL (4.5-10.5)
[2016-09-21 20:19] LABS: ALBUMIN 3.2 G/DL (3.5-5.0); CALCIUM, SERUM 8.9 MG/DL (8.5-10.4); CHLORIDE, SERUM 110 MMOL/L (96-112); CO2 (CARBON DIOXIDE) 24 MMOL/L (24-34); CREATININE 1.58 MG/DL (0.70-1.30); GFR AFRICAN AMERICAN 49 ML/MIN (>=60); GFR NON AFRICAN AMERICAN 42 ML/MIN (>=60); GLUCOSE, SERUM 149 MG/DL (60-99); PHOSPHORUS, SERUM 2.3 MG/DL (2.5-4.5); POTASSIUM, SERUM 3.9 MMOL/L (3.5-5.3); SODIUM, SERUM 143 MMOL/L (135-148)
[2016-09-21 20:20] LABS: BUN (BLOOD UREA NITROGEN) 27 MG/DL (6-23)
[2016-09-21 20:31] LABS: ANISOCYTOSIS 1+ (5-10/OIF) (0-5/OIF); TEARDROP SHAPED RBCS OCC (0-2/OIF)
[2016-09-21 20:32] LABS: PLATELET ESTIMATE DEC (ADEQUATE)
[2016-09-22 19:26] LABS: ALBUMIN 3.1 G/DL (3.5-5.0); CHLORIDE, SERUM 113 MMOL/L (96-112); CO2 (CARBON DIOXIDE) 22 MMOL/L (24-34); CREATININE 1.51 MG/DL (0.70-1.30); GFR AFRICAN AMERICAN 52 ML/MIN (>=60); GFR NON AFRICAN AMERICAN 45 ML/MIN (>=60); GLUCOSE, SERUM 157 MG/DL (60-99); PHOSPHORUS, SERUM 2.7 MG/DL (2.5-4.5); SODIUM, SERUM 144 MMOL/L (135-148)
[2016-09-22 19:28] LABS: BUN (BLOOD UREA NITROGEN) 32 MG/DL (6-23); POTASSIUM, SERUM 4.3 MMOL/L (3.5-5.3)
[2016-09-22 20:58] LABS: BASOPHILS 0.1 %; BASOPHILS ABSOLUTE 0.01 10/3/uL (0.0-0.16); EOSINOPHILS 0 %; HEMATOCRIT 25.4 % (40.0-51.0); HEMOGLOBIN 8.4 g/dL (13.6-17.8); IMMATURE GRANULOCYTES 0.3 %; IMMATURE GRANULOCYTES ABSOLUTE 0.02 10/3/uL (0.0-0.11); LYMPHOCYTES 3.8 %; LYMPHOCYTES ABSOLUTE 0.27 10/3/uL (0.67-4.30); MEAN CORPUS HGB CONC 33.1 g/dL (32.0-36.0); MEAN CORPUSCULAR HEMOGLOB 39.1 pg (26.0-34.0); MEAN CORPUSCULAR VOLUME 118.1 fL (80-100); MEAN PLATELET VOLUME 11.7 fL (9.2-13.0); MONOCYTES 2.5 %; MONOCYTES ABSOLUTE 0.18 10/3/uL (0.21-1.20); NEUTROPHILS 93.3 %; NEUTROPHILS ABSOLUTE 6.62 10/3/uL (2.02-8.40); PLATELET COUNT 102 10/3/uL (150-400); RBC DISTRIBUTION WIDTH 20.4 % (12.0-16.0); RED CELL COUNT 2.15 10/6/uL (4.7-6.1)
[2016-09-22 20:59] LABS: MANUAL DIFF NO %; WHITE BLOOD CELLS 7.1 10/3/uL (4.5-10.5)
[2016-09-22 21:10] LABS: ANISOCYTOSIS 1+ (5-10/OIF) (0-5/OIF); OVALOCYTES 1+ (3-10/OIF) (0-2/OIF); PLATELET ESTIMATE SLT DEC (ADEQUATE); POIKILOCYTOSIS 1+ (5-10/OIF) (0-5/OIF); TEARDROP SHAPED RBCS FEW (3-10/OIF)
[2016-09-24 04:57] LABS: BASOPHILS 0 %; EOSINOPHILS 0 %; HEMATOCRIT 23.3 % (40.0-51.0); HEMOGLOBIN 7.9 g/dL (13.6-17.8); IMMATURE GRANULOCYTES 0.7 %; IMMATURE GRANULOCYTES ABSOLUTE 0.03 10/3/uL (0.0-0.11); LYMPHOCYTES 9.1 %; LYMPHOCYTES ABSOLUTE 0.41 10/3/uL (0.67-4.30); MEAN CORPUS HGB CONC 33.9 g/dL (32.0-36.0); MEAN CORPUSCULAR HEMOGLOB 40.1 pg (26.0-34.0); MEAN CORPUSCULAR VOLUME 118.3 fL (80-100); MEAN PLATELET VOLUME 11.2 fL (9.2-13.0); MONOCYTES 7.6 %; MONOCYTES ABSOLUTE 0.34 10/3/uL (0.21-1.20); NEUTROPHILS 82.6 %; NEUTROPHILS ABSOLUTE 3.71 10/3/uL (2.02-8.40); PLATELET COUNT 87 10/3/uL (150-400); RED CELL COUNT 1.97 10/6/uL (4.7-6.1); WHITE BLOOD CELLS 4.5 10/3/uL (4.5-10.5)
[2016-09-24 05:12] LABS: ALBUMIN 2.7 G/DL (3.5-5.0); BUN (BLOOD UREA NITROGEN) 32 MG/DL (6-23); CALCIUM, SERUM 8.6 MG/DL (8.5-10.4); CHLORIDE, SERUM 115 MMOL/L (96-112); CO2 (CARBON DIOXIDE) 21 MMOL/L (24-34); CREATININE 1.35 MG/DL (0.70-1.30); GFR AFRICAN AMERICAN 60 ML/MIN (>=60); GFR NON AFRICAN AMERICAN 51 ML/MIN (>=60); PHOSPHORUS, SERUM 2.8 MG/DL (2.5-4.5); POTASSIUM, SERUM 4.2 MMOL/L (3.5-5.3); SODIUM, SERUM 147 MMOL/L (135-148)
[2016-09-24 05:15] LABS: GLUCOSE, SERUM 113 MG/DL (60-99)
[2016-09-24 05:23] LABS: MANUAL DIFF NO %
[2016-09-24 05:35] LABS: RBC MORPHOLOGY ABN (NORMAL)
[2016-09-24 05:36] LABS: PLATELET ESTIMATE DEC (ADEQUATE)
[2016-09-24] MEDS ORDERED: FOLIC PO (13:06)
[2016-09-24] MEDS ORDERED: MUCINEX600 MG PO (13:07)
[2016-09-24] MEDS ORDERED: FLOMAX4 PO (13:13)
[2016-09-24] MEDS ORDERED: SPIRIVA INH (13:14)
[2016-09-24] MEDS ORDERED: LEVAQUIN750 MG PO (13:15)
[2016-09-24] MEDS ORDERED: FLORASTOR250 MG PO (13:16)
[2016-09-24] MEDS ORDERED: P20 PO (13:17)
[2016-09-24] MEDS ORDERED: COPPER GLUCONATE PO ×4 (13:24→13:29)
[2016-09-25 05:32] LABS: BASOPHILS 0 %; EOSINOPHILS 0 %; HEMATOCRIT 26.9 % (40.0-51.0); HEMOGLOBIN 9.1 g/dL (13.6-17.8); IMMATURE GRANULOCYTES 0.5 %; IMMATURE GRANULOCYTES ABSOLUTE 0.02 10/3/uL (0.0-0.11); LYMPHOCYTES 16.9 %; LYMPHOCYTES ABSOLUTE 0.69 10/3/uL (0.67-4.30); MANUAL DIFF NO %; MEAN CORPUS HGB CONC 33.8 g/dL (32.0-36.0); MEAN CORPUSCULAR HEMOGLOB 38.2 pg (26.0-34.0); MEAN PLATELET VOLUME 11.1 fL (9.2-13.0); MONOCYTES 11.5 %; MONOCYTES ABSOLUTE 0.47 10/3/uL (0.21-1.20); NEUTROPHILS 71.1 %; NEUTROPHILS ABSOLUTE 2.91 10/3/uL (2.02-8.40); PLATELET COUNT 106 10/3/uL (150-400); RBC DISTRIBUTION WIDTH 23.4 % (12.0-16.0); RED CELL COUNT 2.38 10/6/uL (4.7-6.1); WHITE BLOOD CELLS 4.1 10/3/uL (4.5-10.5)
[2016-09-25 06:38] LABS: PLATELET ESTIMATE SLT DEC (ADEQUATE)
[2016-09-25 06:39] LABS: HYPOCHROMIA 1+ (3-10/OIF) (0-2/OIF); MICROCYTES 1+ (5-10/OIF) (0-5/OIF)
== END 2016-09-25 10:54 | disposition home health service (06) | DRG 190 ==
LOC: ER 16:04 → 7NO 20:26 → 6NO 20:38
PROVIDERS: Emergency Medicine; Hospitalist; Internal Medicine
PROC: 30233N1 Transfusion of Nonautologous Red Blood Cells into Peripheral Vein, Percutaneous Approach (ICD-10-PCS; principal; 2016-09-24)
DX: J44.0 Chronic obstructive pulmonary disease with (acute) lower respiratory infection (principal); J18.9 Pneumonia, unspecified organism; N17.9 Acute kidney failure, unspecified; D61.818 Other pancytopenia; J18.0 Bronchopneumonia, unspecified organism; D46.9 Myelodysplastic syndrome, unspecified; I25.10 Atherosclerotic heart disease of native coronary artery without angina pectoris; J20.9 Acute bronchitis, unspecified; J44.1 Chronic obstructive pulmonary disease with (acute) exacerbation; E61.0 Copper deficiency; R16.1 Splenomegaly, not elsewhere classified; N18.2 Chronic kidney disease, stage 2 (mild); Z95.1 Presence of aortocoronary bypass graft; Z87.891 Personal history of nicotine dependence; Z88.0 Allergy status to penicillin
CPT/HCPCS: 36415; 36600; 71010; 71250; 76775; 80053; 80069; 80307; 81001; 82140; 82570; 82805; 83036; 83605; 83615; 83735; 83880; 83935; 84100; 84145; 84300; 84439; 84443; 84484; 85025; 85045; 85610; 85730; 86850; 86900; 86901; 86920; 87040; 87070; 87205; 87449; 93005; 93306; 94640; 96374; 97162-GP; 99285; A9270-GY; J0456; J0692; J1652; J2930; J3370; P9016